=== PATIENT | male | born 1985 | race Two or more races ===

== ENCOUNTER → 2017-07-07 | Emergency (ER) | payer MEDICAID ==
[~2017-07-07] VITALS: Ht 188 cm; Wt 90.7 kg
[2017-07-07 13:07] VITALS: BP 119/70
--- NOTE | 2017-07-07 16:49 | Emergency Room Report ---
History of Present Illness General Chief Complaint: General Complaint Source: Patient Present Illness Allergies: Coded Allergies: No Known Allergies (Unverified , 07/07/17) Nursing Documentation-[facility] Past Medical History: No Stated History Physical Exam Vital Signs Date Time Temp Pulse Resp B/P (MAP) Pulse Ox O2 Delivery O2 Flow Rate FiO2 07/07/17 13:07 98.1 92 20 119/70 97 Room Air Medical Decision Making Diagnostic Impression: Primary Impression: Patient left without being seen ER Course Patient left prior to M.D. evaluation. Observed leaving in stable condition Last Vital Signs Date Time Temp Pulse Resp B/P (MAP) Pulse Ox O2 Delivery O2 Flow Rate FiO2 07/07/17 13:07 98.1 92 20 119/70 97 Room Air Status: unchanged Disposition: LEFT W/OUT BEING SEEN Condition: Stable Referrals: [facility],REFERRING (PCP) SANAM ESPARZA M.D. Jul 07, 2017 16:49
== END | disposition left against medical advice (07) ==
LOC: EDBD 12:55 → EMR 13:20
DX: Z53.21 Procedure and treatment not carried out due to patient leaving prior to being seen by health care provider (principal)
CPT/HCPCS: 99281